=== PATIENT | male | born 1985 | race Caucasian/White ===

== ENCOUNTER → 2020-08-15 | Outpatient (REF) | payer OTHER ==
[2020-08-15 17:38] LABS: ALBUMIN 3.7 GM/DL (3.2-5.2); ALT/SGPT 166 U/L (12-78); BILIRUBIN,TOTAL 0.7 MG/DL (0.2-1.0); BLOOD UREA NITROGEN 9 MG/DL (7-18); CALCIUM LEVEL 9.1 MG/DL (8.5-10.1); CARBON DIOXIDE LEVEL 25 MEQ/L (21-32); CHLORIDE LEVEL 107 MEQ/L (98-107); CHOLESTEROL LEVEL 213 MG/DL (<200); CHOLESTEROL RISK RATIO 3.435 (<5); CREATININE FOR GFR 0.95 MG/DL (0.70-1.30); FREE T4 0.87 NG/DL (0.76-1.46); GLOMERULAR FILTRATION RATE > 60.0 (>60); GLUCOSE, FASTING 90 MG/DL (70-100); HDL CHOLESTEROL 62 MG/DL (>40); LDL CHOLESTEROL 140 MG/DL (<100); NON-HDL-C 151 MG/DL; SODIUM LEVEL 139 MEQ/L (136-145); TOTAL PROTEIN 7.3 GM/DL (6.4-8.2); TRIGLYCERIDES LEVEL 55 MG/DL (<150)
[2020-08-15 18:34] LABS: HEMOGLOBIN A1c 4.8 %
== END ==
LOC: M SFHCCLAY 08:09
PROVIDERS: ATTEND Family Medicine
DX: R14.0 Abdominal distension (gaseous) (principal); R63.0 Anorexia; R63.1 Polydipsia; R11.2 Nausea with vomiting, unspecified; R63.5 Abnormal weight gain; R07.89 Other chest pain

== ENCOUNTER → 2020-08-19 | Outpatient (CLI) | payer OTHER ==
--- NOTE | 2020-08-19 16:32 | REP ---
INDICATION: PAIN. COMPARISON: None. TECHNIQUE: AP, lateral, bilateral oblique, tunnel and sunrise views of the right knee. FINDINGS: Osseous structures, joint spaces, and surrounding soft tissues are relatively age-appropriate. No overt osteoarthritic or inflammatory arthritic changes are appreciated. No effusion. No acute fracture or dislocation. IMPRESSION: Essentially age-appropriate right knee radiograph series. <Electronically signed by Pancho Steele > 08/19/20 [id number]
--- NOTE | 2020-08-19 16:41 | REP ---
INDICATION: PAIN. COMPARISON: None. TECHNIQUE: AP, lateral, bilateral oblique views of the left hand. FINDINGS: Suspected old healed boxer's fracture of the 5th metacarpal bone. Osseous structures, joint spaces, and surrounding soft tissues are otherwise normal/age-appropriate. No acute fracture or dislocation. IMPRESSION: Findings suggest old healed 5th metacarpal bone fracture. Clinical correlation is recommended. Remainder of the examination is normal. <Electronically signed by Pancho Steele > 08/19/20 [id number]
== END ==
LOC: M SOG 14:48
PROVIDERS: ATTEND Orthopaedic Surgery Sports Medicine
DX: S83.511A Sprain of anterior cruciate ligament of right knee, initial encounter (principal); M79.642 Pain in left hand; X58.XXXA Exposure to other specified factors, initial encounter; Y92.89 Other specified places as the place of occurrence of the external cause; Y93.9 Activity, unspecified; Y99.9 Unspecified external cause status

== ENCOUNTER → 2021-02-24 | Outpatient (CLI) | payer OTHER ==
--- NOTE | 2021-02-24 15:31 | REP ---
INDICATION: ESSENTIAL (PRIMARY) HYPERTENSION COMPARISON: None. TECHNIQUE: PA and lateral. FINDINGS: The mediastinum and cardiac silhouette are normal. The lung hearn are clear and without acute consolidation, effusion, or pneumothorax. The skeletal structures are intact and normal. IMPRESSION: No acute cardiopulmonary process. <Electronically signed by Pancho Steele > 02/24/21 [id number]
== END ==
LOC: M RAD 15:13
PROVIDERS: ATTEND Internal Medicine Cardiovascular Disease
DX: I10 Essential (primary) hypertension (principal)

== ENCOUNTER 2021-05-08 13:34 | Emergency (ER) | payer OTHER ==
[~2021-05-08] VITALS: Ht 177.8 cm; Wt 118.2 kg
[2021-05-08 13:35] VITALS: BP 135/87
[2021-05-08] MEDS ORDERED: SPIR-10 (13:42)
[2021-05-08] MEDS ORDERED: CHLO125TA (13:42)
[2021-05-08] MEDS ORDERED: MORPHINE 10 MG/ML 1ML VIAL (J2270) IM ONE (14:15)
== END 2021-05-08 16:34 | disposition home or self-care (01) ==
LOC: M ED 13:34
DX: S83.91XA Sprain of unspecified site of right knee, initial encounter (principal); S80.11XA Contusion of right lower leg, initial encounter; M25.461 Effusion, right knee; W23.1XXA Caught, crushed, jammed, or pinched between stationary objects, initial encounter; I10 Essential (primary) hypertension; Y92.9 Unspecified place or not applicable; Y93.9 Activity, unspecified; Y99.0 Civilian activity done for income or pay
CPT/HCPCS: 73564; 73590; 96372; 99284; J2270